=== PATIENT | female | born 1970 | race African-American/Black ===

== ENCOUNTER 2017-06-10 08:01 | Inpatient (IN) ==
[2017-06-10] MEDS ORDERED: ONDANSETRON 4 MG/2 ML VIAL IV STA (08:28)
--- NOTE | 2017-06-10 08:31 | Emergency Department Note ---
Zuleyka Amin Hilary, am scribing for, and in the presence of, Adarsh Olguin MD 08: 30. Clau Amin James D, MD, personally performed the services described in this documentation, ascribed by Gilda Gardiner in my presence, and it is both accurate and complete 831 . Arrival - Arrival Chief Complaint: Abdominal / Flank Pain Stated Complaint: upper abd pain ED Nursing Triage Note: upper abd pain for one month but worse over the past three days. reports nausea and vomiting after meals over the past three days. denies constipation. reports bms are normal Mode of Arrival: Ambulatory Limitations: No Limitations Source: Patient, RN Notes Reviewed - History of Present Illness HPI Narrative: Pt is a 47 y/o female presenting to the ED with c/o abdominal pain which onset a month ago but worsened the past few days. Pt confirms abdominal pain, postprandial pain and nausea but denies vomiting. No other complaints or problems stated in the ED. Onset (ago): month(s) Consistency: intermittent Severity: mild Severity scale (1-10): 2 Date of Last Menstrual Period: hyst Allergies/Adverse Reactions: Allergies Allergy/AdvReac Type Severity Reaction Status Date / Time Sulfa (Sulfonamide Allergy Intermediate HIVES Verified 02/16/16 19:53 Antibiotics) Home Medications: Home Medications Medication Instructions Recorded Confirmed Type Carvedilol [Coreg] 6.25 mg PO BID #60 tablet 04/16/16 Rx Spironolactone [Aldactone] 25 mg PO DAILY #30 tablet 04/16/16 Rx HYDROcodone/ACETAMIN 7.5-325 1 tablet PO Q6H #14 tablet 05/18/16 Rx [[place] 7.5-325] cephALEXin [Keflex] 500 mg PO Q6HR #28 capsule 05/18/16 Rx Review of System - Review of System 12 point system: reviewed and no additional remarkable complaints except as stated - Review of System Constitutional: Absent: fever Gastrointestinal: Present: abdominal pain, nausea. Absent: vomiting Medical,Surgical,& Family Hx - Medical History Cardio: History of: Hypertension Respiratory: History of: Obstructive Sleep Apnea - Family History Family History: Reports;: Family Hypertension - Social History Smoking Status: Former smoker Exam Physical Examination: GENERAL: This is a well-nourished, well-developed black female in no apparent distress. VITAL SIGNS: Temperature: 97.6 Pulse: 92 Respiratory: 18 Blood Pressure: 130 /90 O2 Sat: 96 HEENT: Head is normocephalic and atraumatic. Pupils are equally round and reactive to light. Extraocular movement are intact. Oropharynx is benign with moist mucous membranes. NECK: Neck is soft and supple without tenderness. There are no masses. There is no lymphadenopathy. LUNGS: Lungs are clear to auscultation bilaterally. Chest rises symmetrically. There is no chest wall tenderness. CV: Heart is regular rate and rhythm without murmurs, rubs, or gallops. ABDOMEN: Abdomen is soft, tender to palpation in the epigastrium and right upper quadrant without rebound. There are no abnormal masses palpated. There is no organomegaly. Bowel sounds are present and active. SKIN: Skin is warm and dry. No rash. EXTREMITIES: Patient has full range of motion without tenderness. There is no pedal edema. NEUROLOGIC: Awake, alert, and oriented x4. Cranial nerves II through XII are grossly intact. There are no motorsensory deficits. PSYCHIATRIC: Normal affect. Normal mood. Vital Signs: Vital Signs Temperature 97.6 F 06/10/17 08:05 Pulse Rate 72 06/10/17 09:20 Respiratory Rate 16 06/10/17 09:20 Blood Pressure 158/106 06/10/17 09:20 O2 Sat by Pulse Oximetry 99 06/10/17 09:20 Course - Consultations Consultation #1: Discussed with Dr. frazier. He will see the patient in the emergency department. Time: 08:58 Results - Labs CBC & BMP: 06/10/17 08:20 06/10/17 08:20 Lab Results: I have reviewed the patients labs Labs: Laboratory Tests 06/10/17 06/10/17 08:20 08:20 WBC 6.2 RBC 4.43 Hgb 12.6 Hct 36.5 MCV 82.4 L Urine pH 5.0 Ur Specific [place] 1.010 Urine Blood Small Urine Urobilinogen < 2.0 H Urine RBC 2 Urine WBC 19 Laboratory Tests 06/10/17 08:20 Sodium 142 Potassium 3.8 Chloride 109 H Carbon Dioxide 28 BUN 6 L Albumin 3.1 L Globulin 4.1 H Albumin/Globulin Ratio 0.7 L - EKG EKG results: interpreted by ERMD - Impressions EKG: Sinus rhythm with sinus arrhythmia, rate 68, nonspecific ST-T wave changes , normal axis. - Diagnostic Findings Procedure: Abdominal x-ray: report reviewed by me (1. Nonspecific GI pattern 2. Phleboliths in the true pelvis 3. Mild degenerative changes of the acetabulum bilaterally), Chest x-ray: report reviewed by me (1. Borderline cardiac prominence without overt congestive failure consolidating infiltrates with minimal scarring in olivia perihilar regions.), Ultrasound: report reviewed by me (GALLBLADDER: Cholelithiasis without obvious evidence of acute cholecystitis.) Disposition Clinical Impression: UTI (urinary tract infection), Cholelithiasis Case discussed with: patient Condition: Stable
[2017-06-10] MEDS ORDERED: ONDANSETRON 4 MG/2 ML VIAL ONE ×2 (08:33→16:39)
[2017-06-10 08:37] LABS: Basophils % 0.6 % (0.0-0.8); Eosinophils # 0.1 10*3/uL (0.0-0.87); Eosinophils % 1.6 % (0.00-10.9); Hematocrit 36.5 VOL% (35.7-47.0); Hemoglobin 12.6 GM/DL (12.0-16.0); Immature Granulocytes % 0.2 %; Immature Granulocytes Absolute 0.01 #; Lymphocytes # 1.8 10*3/uL (1.4-4.0); Lymphocytes % 29.6 % (21.3-54.2); Mean Corpuscular HGB Conc 34.5 GM/DL (32-36); Mean Corpuscular Hemoglobin 28 PG (27-34); Mean Corpuscular Volume 82.4 FL (87-102); Mean Platelet Volume 9.7 FL (9.6-12.0); Monocytes # 0.4 10*3/uL (0.11-0.8); Neutrophils # 3.9 10*3/uL (1.4-7.4); Platelet Count 333 T/CUMM (130-400); Red Blood Count 4.43 MC/CUMM (3.8-5.5); Red Cell Distribution Width 12.4 % (9.3-17.3); White Blood Count 6.2 T/CUMM (4-12)
[2017-06-10 08:52] LABS: Apearance,Urine Slightly Hazy (Clear); Bacteria,Urine Occasional /HPF (Few); Bilirubin,Urine Negative (Negative); Blood, Urine Small mg/dL (Negative); Glucose,Urine (UA) Negative (Negative); Ketones,Urine Negative (Negative); Mucus,Urine Few /LPF (Occasional); Nitrite,Urine Negative (Negative); Protein,Urine Negative; RBC,Urine 2 /HPF (0-4); Squamous Epithelial Cell,Urine Occasional /HPF (0-10); Urine Color Yellow (Yellow); Urine Urobilinogen < 2.0 EU/DL (0.2-1.0); WBC,Urine 19 /HPF (0-6)
[2017-06-10 09:07] LABS: Albumin 3.1 G/DL (3.4-5.0); Bilirubin,Total 0.6 MG/DL (0.2-1.0); Calcium 8.8 MG/DL (8.5-10.1); Osmolality,Calculated 280.1 MOS/KG (273-304); Potassium 3.8 MMOL/L (3.5-5.1); Total Protein 7.2 G/DL (6.4-8.3)
--- NOTE | 2017-06-10 09:34 | Ultrasound Report ---
Exam: US gallbladder Date:06/10/2017 8:29 AM Indication: Epigastric right upper quadrant pain Comparison: None Findings: Liver: 13.3 cm. The hepatic and portal veins are patent. No focal abnormalities. Gallbladder: Multiple stones present within the gallbladder. The anterior an 1.9 mm CBD: 2.6 mm Pancreas: Normal size shape and configuration Kidneys Right kidney: 11.4 x 4.3 x 4.6 cm. No hydronephrosis perinephric fluid collections or focal mass. Ascites: None Impression: 1. Cholelithiasis without obvious evidence of acute cholecystitis. Ultrasound images were stored and captured PROCEDURE INTERPRETED AT [facility] DEPARTMENT OF RADIOLOGY Final Report Signed by: Dr. Syed Paez
--- NOTE | 2017-06-10 09:38 | XRay Report ---
Exam: XR abdomen complete w decub Date: 06/10/2017 8:29 AM Indication: Abdominal pain Comparison: 02/16/2016 Technical: Supine abdomen with erect images Findings: Lung bases are unremarkable. The liver and spleen are unremarkable Renal contours are unremarkable The bony structures are intact No obvious pneumoperitoneum Nonspecific GI pattern. Phleboliths are present in the true pelvis. Degenerative change present on the acetabular rims bilaterally. Impression: 1. Nonspecific GI pattern 2. Phleboliths in the true pelvis 3. Mild degenerative changes of the acetabulum bilaterally PROCEDURE INTERPRETED AT [facility] DEPARTMENT OF RADIOLOGY Final Report Signed by: Dr. Syed Paez
--- NOTE | 2017-06-10 09:40 | XRay Report ---
Exam: XR chest 2V Date: 06/10/2017 8:29 AM Indication: Abdominal pain Comparison: 04/15/2016 Technical: PA lateral Findings: Mild cardiac prominence. A few small nodes are present in the perihilar regions. A neckless superimposes exam. No obvious consolidating infiltrate or effusion. Impression: 1. Borderline cardiac prominence without overt congestive failure consolidating infiltrates with minimal scarring in the perihilar regions. PROCEDURE INTERPRETED AT [facility] DEPARTMENT OF RADIOLOGY Final Report Signed by: Dr. Syed Paez
--- NOTE | 2017-06-10 10:09 | EKG Report ---
Stationary ECG Study [facility] ER Test Date: 06/10/2017 10:07:38 AM Pat Name: LINCOLN RIVERS Department: Room: Gender: F Rn Examiner: : 1970 Requested by: Adarsh Cantu Order Number: [id number] Reading MD: FAN MARTIN Intervals [place] Rate: 68 P: 47 NH: 154 QRS: 42 QRSD: 98 T: 1 QT: 373 QTc: 391 Interpretive Statements SINUS RHYTHM WITH SINUS ARRHYTHMIA NONSPECIFIC T-WAVE ABNORMALITY Electronically Signed On 06-10-17 18:54:17 CDT by FAN MARTIN [email or web address]
[2017-06-10] MEDS ORDERED: HYDROmorphone 2 MG/1 ML VIAL IV PRN (11:33)
[2017-06-10] MEDS ORDERED: ACETAMINOPHEN 325 MG TABLET PO PRN (11:33)
[2017-06-10] MEDS ORDERED: ONDANSETRON 4 MG/2 ML VIAL IV PRN ×2 (11:33→16:43)
[2017-06-10] MEDS: LACTATED RINGERS 1,000 ML IV SCH ×4 (11:54→23:24)
[2017-06-10] MEDS ORDERED: PIPERACILLIN/TAZOBACTAM 3,375 MG in SODIUM CHLORIDE 0.9% 100 ML IV SCH (12:00)
--- NOTE | 2017-06-10 13:57 | General Surg History&Physical ---
Assessment and Plan (1) Cholelithiasis Status: Acute Assessment and plan: This patient has symptomatic cholelithiasis. I have recommended a laparoscopic cholecystectomy to the patient. I have also discussed nonoperative management with the patient including watchful waiting and dietary modification. Patient would like to proceed with operative intervention. I have discussed the risks, benefits, and alternatives of the operation, and the expected outcomes have been reviewed. In particular, I discussed the risk of bleeding, infection, hernias of the abdominal wall, injury to the intestines or liver, pancreatitis, dropped or retained stones in the abdomen, bile leak, and bile duct injury. The patient's questions have been answered. There are no indications for a selective cholangiogram. I have also discussed the possibility of an open cholecystectomy if it is not safe to proceed with laparoscopic surgery based on scar tissue or inflammatory changes. The patient understands this and would like to proceed with the operation. Current Visit: Yes History of Present Illness Chief complaint: Right upper quadrant abdominal pain with nausea and vomiting History of present illness: Ms. Drummond is a 47 year old female with history of hypertension who presents to the ER for midepigastric right upper quadrant pain is been recurrent over the past several weeks and is postprandial with nausea and intermittent nonbilious nonbloody emesis. Patient denies prior abdominal surgical history. She does not know of any history of gallstones or anything on imaging that shown up in the past. She denies any fevers. Home Medications Medication Instructions Recorded Confirmed Type Valsartan/Hydrochlorothiazide 1 each PO QAM 06/10/17 06/10/17 History [Diovan Hct 160-12.5 mg Tab] Allergies Allergy/AdvReac Type Severity Reaction Status Date / Time Sulfa (Sulfonamide Allergy Intermediate HIVES Verified 02/16/16 19:53 Antibiotics) Medical,Surgical,& Family Hx - Medical History Cardio: History of: Hypertension Respiratory: History of: Obstructive Sleep Apnea - Family History Family History: Reports;: Family Hypertension - Social History Smoking Status: Former smoker Frequency of Alcohol Use: Occasionally Type of Drug Use: None Exam - Constitutional Vitals: Period Temp Pulse Resp BP Sys/Younger Pulse Ox Last 24 Hr 97.4 F-97.6 F 60-92 16-18 114-158/61-110 96-100 General appearance: no acute distress, morbidly obese - Head Head exam: Present: normal inspection, normocephalic - Eye Eye exam: Present: EOMI Pupils: Present: KIMBERLEY - ENT ENT exam: Present: normal exam Mouth exam: Present: normal external inspection, normal voice - Neck Neck exam: Present: normal inspection, trachea midline - Respiratory Respiratory exam: Present: clear to auscultation bilaterally. Absent: accessory muscle use, chest wall tenderness - Cardiovascular Cardiovascular exam: Present: RRR. Absent: systolic murmur, tachycardia - GI/Abdominal GI/Abdominal exam: Present: tenderness, soft. Absent: Clarke's sign, rebound - Extremities Exam Extremities exam: Present: normal inspection, normal capillary refill - Back Exam Back exam: Present: normal inspection - Neurological Exam Neurological exam: Present: alert, oriented X3 Speech: Present: normal - Skin Skin exam: Present: normal color, warm - Constitutional Constitutional: Present: as per HPI - EENT Nose, mouth and throat: Present: as per HPI - Cardiovascular Cardiovascular: Present: as per HPI - Respiratory Respiratory: Present: as per HPI - Gastrointestinal Gastrointestinal: Present: as per HPI - Genitourinary Genitourinary: Present: as per HPI - Musculoskeletal Musculoskeletal: Present: as per HPI - Neurological Neurological: Present: as per HPI - Endocrine Endocrine: Present: as per HPI Hematologic/Lymphatic: Present: as per HPI Results - Labs CBC & BMP: 06/10/17 08:20 06/10/17 08:20 - Diagnostic Findings Procedure: Chest x-ray: image reviewed by me, report reviewed by me, KUB x-ray: image reviewed by me, report reviewed by me, Ultrasound: image reviewed by me, report reviewed by me (Gallstones with no wall thickening or pericholecystic fluid. Normal-sized bile duct)
[2017-06-10] MEDS ORDERED: LIDOCAINE 1%/EPI INJ 20 ML VIAL ONE (14:52)
--- NOTE | 2017-06-10 16:24 | Operative Note ---
Date of procedure: 06/10/17 Pre-op diagnosis: Symptomatic cholelithiasis Post-op diagnosis: same Procedure: Preoperative diagnosis Symptomatic cholelithiasis Postoperative diagnosis Same Procedures performed Laparoscopic cholecystectomy Findings Acute and chronic cholecystitis was seen. The critical view of safety was obtained prior to placing clips on the cystic duct and cystic artery. Complications None apparent Specimen Gallbladder Anesthesia GETA Blood loss 5 mL Indications Symptomatic cholelithiasis. The risks, benefits, and alternatives of the operation were discussed with the patient in detail, and the expected outcomes were reviewed. In particular, the risk of bowel injury, liver injury, bile duct leak and bile duct injury, as well as pancreatitis and retained or drop stones were discussed in detail. All the patient's questions were answered. She like to proceed with the operation. Description of procedure The patient was taken to the operating room and transferred to the operating table in the supine position. Pressure points were padded and SCDs were placed to bilateral lower extremities. General endotracheal anesthesia was administered. The abdomen was prepped chlorhexidine and draped sterilely. Preoperative antibiotics were administered, a timeout was performed. The abdomen was entered in a supraumbilical location of the Veress needle. The skin incision was made in the supraumbilical location with a 11 blade scalpel after local anesthetic was administered. Umbilical stalk was grasped with a penetrating towel clip. A Veress needle was used to enter the peritoneal cavity confirmed by double click technique. Aspiration was negative. Saline drop test confirmed intraperitoneal location. The abdomen was insufflated to 15 mmHg with an initial insufflation pressure of 2 mmHg. The Veress needle was removed and a 5 mm trocar was placed blindly. The towel clip was removed. Diagnostic laparoscopy was performed. There is no evidence of Veress needle or trocar injury. The patient was placed in reverse Trendelenburg and left side rolled down position. Under direct visualization, and after local anesthetic was administered, an 11 mm midepigastric trocar and 2 right subcostal 5 mm trochars were placed. The gallbladder was grasped at the fundus and infundibulum. The cystic plate peritoneum was dissected into the critical view of safety was obtained. The cystic duct and cystic artery were clipped twice initially and once laterally and divided laparoscopically with scissors between clips. Gallbladder was removed from the gallbladder fossa using hook electrocautery. The gallbladder was placed in a Endo Catch retrieval bag through the 11 mm trocar and removed through the trocar with no significant fascial extension of the incision. The gallbladder fossa was suction irrigated until the effluent was clear. The CO2 was released from the abdomen and the trochars were removed. The skin incisions were closed with 4-0 Monocryl subcuticular suture and sterile skin glue. The patient was awakened from anesthesia and transferred to recovery. Postoperative plan Advance diet as tolerated Pain control Anesthesia: ANIKAA, local Surgeon / Physician: Marlon Silveira Estimated blood loss: minimal Specimens: other (gallbladder) Condition: stable Disposition: PACU Results - Labs CBC & BMP: 06/10/17 08:20 06/10/17 08:20 Discharge Plan - Discharge Data Disposition: Disch To Home/Self Care Condition at Discharge: Stable Discharge Diet: advance to your usual diet Activity: no lifting Hygiene: may shower Weight Bearing at Discharge: full weight bearing, weight bear as tolerated Driving: other (Do not drive or operate heavy machinery for at least 24 hours and after you are off of narcotic pain medications.) Contact your physician if you experience:: fever over 101, Difficulty voiding, Redness or swelling, Nausea/Vomiting, Shortness of breath, Bleeding, pain uncontrolled by pain medications Wound / Dressing Care Instructions: It is okay to shower. Do not scrub the incision aggressively or submerge it under water. - Discharge Medications New HYDROcodone/ACETAMIN 7.5-325 [[place] 7.5-325] 1 tablet PO Q4H PRN #20 tablet PRN Reason: Pain Moderate (4-7) Continue Valsartan/Hydrochlorothiazide [Diovan Hct 160-12.5 mg Tab] 1 each PO QAM - Follow Up or Referral Follow Up: Marlon Silveira MD [Physician] - 2 Weeks - Forms/Instructions
--- NOTE | 2017-06-10 16:35 | Anesthesia Post-Op ---
Anesthesia Post OP - Post Ansesthetic Evaluation Patient seen in post op: Yes Resp: within normal limits CV: within normal limits Mental: within normal limits Temp: within normal limits [id number]: within normal limits Nausea and Vomiting: within normal limits Pain: within normal limits
[2017-06-10] MEDS ORDERED: HYDROmorphone 2 MG/1 ML VIAL ONE (16:38)
[2017-06-10] MEDS ORDERED: fentaNYL 100 MCG/2 ML VIAL ONE (16:38)
[2017-06-10] MEDS ORDERED: PROPOFOL 200 MG/20 ML VIAL IV ONE (16:38)
[2017-06-10] MEDS ORDERED: METOCLOPRAMIDE 10 MG/2 ML VIAL ONE (16:38)
[2017-06-10] MEDS ORDERED: KETOROLAC 30 MG/1 ML VIAL ONE (16:39)
[2017-06-10] MEDS ORDERED: GLYCOPYRROLATE 0.4 MG/2 ML VIAL ONE (16:39)
[2017-06-10] MEDS ORDERED: NEOSTIGMINE 10 MG/10 ML VIAL ONE (16:40)
[2017-06-10] MEDS ORDERED: ROCURONIUM 100 MG/10 ML VIAL IV ONE (16:40)
[2017-06-10] MEDS ORDERED: SUCCINYLCHOLINE 200 MG/10 ML VIAL ONE (16:40)
[2017-06-10] MEDS: HYDROmorphone 2 MG/1 ML VIAL IV PRN ×2 (16:50→16:59)
[2017-06-11 07:40] VITALS: BP 144/69
[2017-06-11] MEDS: LACTATED RINGERS 1,000 ML IV SCH (08:36)
[2017-06-11] MEDS ORDERED: PANTOPRAZOLE 40 MG TABLET PO SCH (09:00)
--- NOTE | 2017-06-11 10:12 | Discharge Summary ---
Hospital Course - Hospital Course Hospital Course: The patient was admitted following an ER consultation for symptomatic cholelithiasis and she was taken to the operating room for cholecystectomy. She stayed overnight for some nausea but it had resolved the next morning and she was discharged home. Diagnosis - Discharge Diagnosis (1) Cholelithiasis Status: Acute Specialty Discharge - Follow Up or Referrals Follow up with: Marlon Silveira MD [Physician] - 06/24/17 9:00 am Discharge Plan - Discharge Data Disposition: Disch To Home/Self Care - Discharge Medications New HYDROcodone/ACETAMIN 7.5-325 [[place] 7.5-325] 1 tablet PO Q4H PRN #20 tablet PRN Reason: Pain Moderate (4-7) Continue Valsartan/Hydrochlorothiazide [Diovan Hct 160-12.5 mg Tab] 1 each PO QAM - Follow Up or Referral Follow Up: Marlon Silveira MD [Physician] - 06/24/17 9:00 am - Forms/Instructions Instructions: Laparoscopic Cholecystectomy (DC) Exam - Constitutional Vitals: Period Temp Pulse Resp BP Sys/Younger Pulse Ox Last 24 Hr 97.2 F-98.2 F 14-96 14-20 114-152/58-107 95-100 DS: Provider Date of admission: 06/10/17 09:30 Primary care physician: Angel Allen Attending physician on admission: Marlon Silveira MD Consults: 06/10/17 11:45 Consult to Pastoral Services [CONS] Routine Comment: Pastoral Screen: Request Fur Stretcher Visit Pastoral Screen Source of Request: Patient 06/10/17 13:54 Consult to Anesthesiology [CONS] Routine Consulting Provider: Reason for Anesthesiology: Pre-op Clearance Discharging clinician: Marlon Silveira MD Expected date of discharge: 06/11/17
--- NOTE | 2017-06-14 12:19 | Pathology Report from [facility] ---
[facility] [place] # : [id number] PATIENT NAME : Yennifer Drummond ORDERING DR : Marlon Silveira MD CLINICAL HX: Cholecystitis POST-OP DX: Same SPECIMEN INFO: Gallbladder GROSS DESCRIPTION: Received in formalin labeled YENNIFER DRUMMOND & GALLBLADDER consists of an intact gallbladder measuring 6.9 x 3 cm. The serosa is smooth and solis robin. The gallbladder wall has a thickness of 0.2 cm. The mucosa is granular light green robin with scattered yellow streaking present. The lumen contains yellow green bile with green yellow stones measuring 0.8 x 0.4 cm in aggregate. Roller Leveler Operator sections are submitted in one cassette. DIAGNOSIS FOR YENNIFER DRUMMOND: GALLBLADDER, CHOLECYSTECTOMY: Acute and chronic cholecystitis. Cholelithiasis. COLLECTED DATE: 06/11/2017 [facility] REPORT DATE: 06/14/2017 ELECTRONICALLY SIGNED BY: Stephanie Loera M.D. 06/14/2017 - 10:21:52 MTDD
== END 2017-06-11 11:25 | disposition home or self-care (01) | DRG 419 ==
LOC: N.ED 08:01 → N.EDINP 09:30 → N.3E 11:10
PROVIDERS: ADMIT Surgery; ATTEND Surgery
PROC: LAPCHOL (2017-06-10 15:25)

== ENCOUNTER 2017-10-21 20:13 | Inpatient (IN) ==
[2017-10-21] MEDS ORDERED: KETOROLAC 30 MG/1 ML VIAL IV STA (21:02)
[2017-10-21] MEDS ORDERED: methylPREDNISolone SOD SUC 125 MG/2 ML VIAL IV STA (21:02)
[2017-10-21] MEDS ORDERED: LEVOFLOXACIN INJ 750 MG in PREMIX 1 EACH IV STA (21:02)
[2017-10-21] MEDS ORDERED: SODIUM CHLORIDE 0.9% 500 ML IV STA (21:02)
[2017-10-21] MEDS ORDERED: ALBUTEROL 2.5 MG/3 ML NEB RESP TX SCH (21:30)
[2017-10-21 21:53] LABS: Basophils # 0.1 10*3/uL (0.0-0.2); Basophils % 0.4 % (0.0-0.8); Eosinophils # 0.1 10*3/uL (0.0-0.87); Eosinophils % 0.8 % (0.00-10.9); Hematocrit 32.5 VOL% (35.7-47.0); Immature Granulocytes % 0.4 %; Immature Granulocytes Absolute 0.05 #; Lymphocytes # 2.6 10*3/uL (1.4-4.0); Lymphocytes % 20.4 % (21.3-54.2); Mean Corpuscular HGB Conc 33.8 GM/DL (32-36); Mean Corpuscular Hemoglobin 28 PG (27-34); Mean Corpuscular Volume 82.9 FL (87-102); Mean Platelet Volume 10.2 FL (9.6-12.0); Monocytes # 0.7 10*3/uL (0.11-0.8); Monocytes % 5.3 % (1.7-12.7); Neutrophils # 9.4 10*3/uL (1.4-7.4); Neutrophils % 72.7 % (38.7-73.9); Platelet Count 378 T/CUMM (130-400); Red Blood Count 3.92 MC/CUMM (3.8-5.5); Red Cell Distribution Width 12.2 % (9.3-17.3); White Blood Count 12.9 T/CUMM (4-12)
[2017-10-21] MEDS ORDERED: methylPREDNISolone SOD SUC 125 MG/2 ML VIAL ONE (22:11)
[2017-10-21] MEDS ORDERED: LEVOFLOXACIN INJ 150 ML IV ONE (22:11)
[2017-10-21] MEDS ORDERED: KETOROLAC 30 MG/1 ML VIAL ONE (22:11)
[2017-10-21 22:15] LABS: Alanine Aminotransferase 22 U/L (13-56); Albumin 3.4 G/DL (3.4-5.0); Alkaline Phosphatase 92 U/L (45-117); Aspartate Amino Transferase 14 U/L (0-37); Blood Urea Nitrogen 9 MG/DL (7-18); Calcium 8.7 MG/DL (8.5-10.1); Glucose 88 MG/DL (74-106); Osmolality,Calculated 272.7 MOS/KG (273-304); Potassium 3.3 MMOL/L (3.5-5.1); Sodium 138 MMOL/L (136-145); Total Protein 7.3 G/DL (6.4-8.3); Troponin I Only < 0.015 NG/ML (0.00-0.045)
[2017-10-21] MEDS ORDERED: ALBUTEROL/IPRATROPIUM 3 ML NEB RESP TX STA (22:28)
[2017-10-21] MEDS ORDERED: POTASSIUM BICARB EFFERVESCENT 25 MEQ TABLET PO ONE ×2 (22:32→23:04)
[2017-10-21 22:33] LABS: INR 0.9
[2017-10-21 23:28] LABS: Apearance,Urine CLOUDY (Clear); Bacteria,Urine Few /HPF (Few); Bilirubin,Urine Negative (Negative); Blood, Urine Small mg/dL (Negative); Glucose,Urine (UA) Negative (Negative); Ketones,Urine Negative (Negative); Nitrite,Urine Positive (Negative); Protein,Urine Negative; Squamous Epithelial Cell,Urine Few /HPF (0-10); Urine Color Yellow (Yellow); Urine Urobilinogen < 2.0 EU/DL (0.2-1.0); WBC,Urine 66 /HPF (0-6)
[2017-10-21 23:31] LABS: Barbiturates Screen,Urine Negative (Negative); Benzodiazepines Screen,Urine Negative (Negative); Cannabinoid Screen,Urine Negative (Negative); Opiate Screen,Urine Negative (Negative); Phencyclidine Screen,Urine Negative (Negative)
[2017-10-22] MEDS ORDERED: ALBUTEROL 2.5 MG/3 ML NEB RESP TX PRN (00:51)
[2017-10-22] MEDS ORDERED: ACETAMINOPHEN 325 MG TABLET PO PRN (00:54)
[2017-10-22] MEDS ORDERED: ONDANSETRON 4 MG/2 ML VIAL IV PRN (00:54)
[2017-10-22] MEDS ORDERED: MORPHINE 10 MG/1 ML VIAL IV PRN (00:54)
[2017-10-22] MEDS ORDERED: ALBUTEROL/IPRATROPIUM 3 ML NEB RESP TX SCH (01:00)
[2017-10-22] MEDS ORDERED: SODIUM CHLORIDE 0.9% 1,000 ML IV SCH (01:00)
[2017-10-22] MEDS ORDERED: IBUPROFEN 600 MG TABLET PO PRN (01:02)
[2017-10-22] MEDS ORDERED: cefTRIAXone 1,000 MG VIAL ONE (01:35)
[2017-10-22] MEDS: cefTRIAXone 1,000 MG in SYRINGE 1 EACH IV SCH (01:57)
[2017-10-22] MEDS: SODIUM CHLORIDE 0.9% 1,000 ML IV SCH ×2 (02:37→23:34)
[2017-10-22 07:03] LABS: Basophils % 0.1 % (0.0-0.8); Hematocrit 32.2 VOL% (35.7-47.0); Hemoglobin 10.7 GM/DL (12.0-16.0); Immature Granulocytes % 0.8 %; Immature Granulocytes Absolute 0.13 #; Lymphocytes # 0.8 10*3/uL (1.4-4.0); Lymphocytes % 4.6 % (21.3-54.2); Mean Corpuscular HGB Conc 33.2 GM/DL (32-36); Mean Corpuscular Hemoglobin 28 PG (27-34); Mean Corpuscular Volume 84.7 FL (87-102); Mean Platelet Volume 10.2 FL (9.6-12.0); Monocytes # 0.1 10*3/uL (0.11-0.8); Monocytes % 0.7 % (1.7-12.7); Neutrophils # 15.6 10*3/uL (1.4-7.4); Neutrophils % 93.8 % (38.7-73.9); Platelet Count 367 T/CUMM (130-400); Red Cell Distribution Width 12.5 % (9.3-17.3); White Blood Count 16.6 T/CUMM (4-12)
[2017-10-22 07:24] LABS: Band Neutrophils 2 % (0-10); Eosinophils 1 % (0-10); Giant Platelets Few; Hypochromasia 1+; Lymphocytes 2 % (20-55); Platelet Estimate Adequate; Segmented Neutrophils 95 % (50-85); Total Cells Counted 100
[2017-10-22 07:25] LABS: % Iron Saturation 13.2 % (18-50); Calcium 8.5 MG/DL (8.5-10.1); Potassium 3.4 MMOL/L (3.5-5.1)
[2017-10-22 07:40] LABS: Folate 6.8 NG/ML (5.4-24.0); Vitamin B12 509 PG/ML (211-911)
[2017-10-22 08:09] LABS: Magnesium 1.7 MG/DL (1.8-2.4); Thyroid Stimulating Hormone 0.435 uIU/ml (0.358-3.74)
[2017-10-22] MEDS: AZITHROMYCIN INJ 500 MG in SODIUM CHLORIDE 0.9% 250 ML IV SCH (08:45)
[2017-10-22] MEDS: POTASSIUM CHLORIDE 20 MEQ TABLET PO PRN ×3 (08:46→13:43)
[2017-10-22] MEDS: ENOXAPARIN 40 MG/0.4 ML SYRINGE SUBCUT SCH (08:46)
[2017-10-22] MEDS: VALSARTAN/HCTZ 160-12.5 MG TABLET PO SCH (08:46)
[2017-10-22 08:59] LABS: Sedimentation Rate-Westergren 99 MM/HR (0-20)
[2017-10-22] MEDS ORDERED: diphenhydrAMINE CAP 50 MG CAPSULE PO PRN (18:50)
[2017-10-22] MEDS ORDERED: ZALEPLON 5 MG CAPSULE PO PRN (18:50)
[2017-10-23] MEDS: cefTRIAXone 1,000 MG in SYRINGE 1 EACH IV SCH (00:55)
[2017-10-23] MEDS: ENOXAPARIN 40 MG/0.4 ML SYRINGE SUBCUT SCH (09:23)
[2017-10-23] MEDS: VALSARTAN/HCTZ 160-12.5 MG TABLET PO SCH (09:23)
[2017-10-23] MEDS: AZITHROMYCIN INJ 500 MG in SODIUM CHLORIDE 0.9% 250 ML IV SCH (09:24)
[2017-10-23] MEDS: BENZONATATE 100 MG CAPSULE PO SCH (21:09)
[2017-10-23] MEDS: SODIUM CHLORIDE 0.9% 1,000 ML IV SCH (21:25)
[2017-10-24] MEDS: cefTRIAXone 1,000 MG in SYRINGE 1 EACH IV SCH (00:19)
[2017-10-24] MEDS ORDERED: LEVOFLOXACIN 750 MG TABLET PO SCH (08:30)
[2017-10-24] MEDS ORDERED: AZITHROMYCIN 250 MG TABLET PO SCH (09:00)
[2017-10-24] MEDS: BENZONATATE 100 MG CAPSULE PO SCH (09:12)
[2017-10-24] MEDS: VALSARTAN/HCTZ 160-12.5 MG TABLET PO SCH (09:12)
[2017-10-24] MEDS: ENOXAPARIN 40 MG/0.4 ML SYRINGE SUBCUT SCH (09:14)
[2017-10-24 09:35] VITALS: BP 121/71
[2017-10-25 10:57] LABS: Hemoglobin A1 (Alkaline) 62.7 % (96.5-98.5); Hemoglobin A2 (Alkaline) 2.9 % (1.5-3.5)
[2017-10-25 10:58] LABS: Hemoglobin S (Alkaline) 34.4 %
== END 2017-10-24 10:30 | disposition home or self-care (01) | DRG 871 ==
LOC: N.ED 20:13 → N.EDINP 10-22 00:49 → SUATTDRO 10-22 00:49 → N.EDINP 10-22 02:03 → N.5E 10-22 02:04
PROVIDERS: ADMIT Family Medicine; ATTEND Internal Medicine Infectious Disease